=== PATIENT | female | born 1930 | race Caucasian/White ===

== ENCOUNTER → 2017-08-29 | Outpatient (CLI) | payer MEDICARE ==
[~2017-08-29] MED LIST: ALBIPROI; AZIT250; CLOT10 SUSW; DOXY100 PO; FLUSAL2505; GUAI600ER; PRED20
[2017-08-29 11:10] LABS: BASOPHILS ABSOLUTE AUTO 0.02 K/mm3 (0.00-0.23); BASOPHILS PERCENT AUTO 0 % (0-2); EOSINOPHILS ABSOLUTE AUTO 0.03 K/mm3 (0.00-0.68); EOSINOPHILS PERCENT AUTO 0 % (0-6); Hematocrit 40.5 % (33.0-51.0); IMMATURE GRAN ABSOLUTE AUTO 0.07 K/mm3 (0.00-0.10); IMMATURE GRAN PERCENT AUTO 1 % (0-1); LYMPHOCYTES ABSOLUTE AUTO 2.47 K/mm3 (0.84-5.20); LYMPHOCYTES PERCENT AUTO 17 % (21-46); MONOCYTES ABSOLUTE AUTO 0.96 K/mm3 (0.16-1.47); MONOCYTES PERCENT AUTO 7 % (4-13); Mean Corpuscular HGB 28.3 pg (26.0-34.0); Mean Corpuscular HGB Conc 32.1 g/dL (31.5-36.5); Mean Corpuscular Volume 88 fL (80-100); Mean Platelet Volume 9.8 fL (9.1-12.4); NEUTROPHILS ABSOLUTE AUTO 10.77 K/mm3 (1.96-9.15); NEUTROPHILS PERCENT AUTO 75 % (41-73); Platelet Count 304 K/mm3 (150-400); RDW Coefficient Variation 14.4 % (11.7-14.2); RDW Standard Deviation 46.5 fL (35.1-46.3); White Blood Cell Count 14.32 K/mm3 (4.00-11.30)
[2017-08-29 11:23] LABS: Alanine Aminotransfer (ALT/SGP 22 U/L (12-78); Albumin, Blood 3.5 g/dL (3.4-5.0); Albumin/Globulin Ratio 0.7 (0.8-1.8); Alk Phos 105 U/L (40-126); Anion Gap 6 mmol/L (6-16); Aspartate Aminotrans (AST/SGOT 17 U/L (12-37); Bilirubin, Total 0.4 mg/dL (0.1-1.0); Blood Urea Nitrogen 23 mg/dL (8-24); Bun/Creatinine Ratio 29.5 (12.0-20.0); CO2, Blood 32 mmol/L (21-32); Calcium, Blood 9.7 mg/dL (8.5-10.1); Chloride, Blood 101 mmol/L (98-108); Creatinine, Blood 0.78 mg/dL (0.40-1.00); Globulin, Blood 4.8 g/dL (2.2-4.0); Glomerular Filtration Rate >60 (60-); Glucose, Blood 112 mg/dL (70-99); Potassium, Blood 4.1 mmol/L (3.5-5.5); Sodium, Blood 139 mmol/L (136-145); Total Protein, Blood 8.3 g/dL (6.4-8.2)
== END | disposition home or self-care (01) ==
LOC: LAB SHORT 11:04 → LAB EV 11:04
PROVIDERS: Physician Assistant
DX: R05 Cough (principal)
CPT/HCPCS: 80053; 85025

== ENCOUNTER 2018-10-17 08:02 | Inpatient (IN) | payer MEDICARE ==
[~2018-10-17] VITALS: Ht 160 cm; Wt 50.1 kg
[2018-10-17] MEDS ORDERED: VITAMINS (08:10)
[2018-10-17 08:25] LABS: BASOPHILS ABSOLUTE AUTO 0.05 K/mm3 (0.00-0.23); BASOPHILS PERCENT AUTO 1 % (0-2); EOSINOPHILS PERCENT AUTO 5 % (0-6); Hematocrit 41.9 % (33.0-51.0); Hemoglobin 12.5 g/dL (11.5-16.0); IMMATURE GRAN ABSOLUTE AUTO 0.02 K/mm3 (0.00-0.10); IMMATURE GRAN PERCENT AUTO 0 % (0-1); LYMPHOCYTES ABSOLUTE AUTO 2.54 K/mm3 (0.84-5.20); LYMPHOCYTES PERCENT AUTO 34 % (21-46); MONOCYTES ABSOLUTE AUTO 0.82 K/mm3 (0.16-1.47); MONOCYTES PERCENT AUTO 11 % (4-13); Mean Corpuscular HGB 26.5 pg (26.0-34.0); Mean Corpuscular HGB Conc 29.8 g/dL (31.5-36.5); Mean Corpuscular Volume 89 fL (80-100); Mean Platelet Volume 10.1 fL (9.1-12.4); NEUTROPHILS ABSOLUTE AUTO 3.72 K/mm3 (1.96-9.15); NEUTROPHILS PERCENT AUTO 49 % (41-73); Platelet Count 272 K/mm3 (150-400); RDW Coefficient Variation 15.9 % (11.7-14.2); RDW Standard Deviation 52.6 fL (35.1-46.3); Red Blood Cell Count 4.71 M/mm3 (3.80-5.20); White Blood Cell Count 7.55 K/mm3 (4.00-11.30)
[2018-10-17 08:51] LABS: Alanine Aminotransfer (ALT/SGP 48 U/L (12-78); Albumin, Blood 3.6 g/dL (3.4-5.0); Albumin/Globulin Ratio 0.9 (0.8-1.8); Alk Phos 144 U/L (50-136); Anion Gap 4 mmol/L (6-16); Aspartate Aminotrans (AST/SGOT 24 U/L (12-37); Bilirubin, Total 0.6 mg/dL (0.1-1.0); Blood Urea Nitrogen 12 mg/dL (8-24); Bun/Creatinine Ratio 19.3 (12.0-20.0); CO2, Blood 28 mmol/L (21-32); Calcium, Blood 9.1 mg/dL (8.5-10.1); Chloride, Blood 106 mmol/L (98-108); Creatinine, Blood 0.62 mg/dL (0.40-1.00); Globulin, Blood 4.2 g/dL (2.2-4.0); Glomerular Filtration Rate >60 (60-); Glucose, Blood 128 mg/dL (70-99); Sodium, Blood 138 mmol/L (136-145); Total Protein, Blood 7.8 g/dL (6.4-8.2); Troponin I <0.015 ng/mL (0.000-0.040)
[2018-10-17] MEDS ORDERED: eye drops (12:17)
[2018-10-17] MEDS ORDERED: LATA.005SO BOTHEYES (12:19)
[2018-10-17] MEDS ORDERED: Istalol2.5 ML BOTHEYES (12:19)
--- NOTE | 2018-10-17 15:00 | NUR ---
PATIENT ARRIVED TO ROOM PCU 6 VIA STRETCHER AFTER TELEPHONE WAS RECEIVED FROM ERIN HARTMAN, ED, PATIENT WAS MOVED TO BED VIA SLIDER, PATIENT IS AWAKE, ALERT AND ORIENTED, SLIGHT LEFT SIDED FACIAL DROOP NOTED, LEFT ARM AND LEG SLIGHTLY WEAKER WITH MOVEMENT, PATIENT C/O MUSCLE CRAMPS IN LEFT CALF, LUNG SOUNDS ARE DIMINISHED IN ALL LUNG GOLDMAN, A-FIB WITH HR IN 80'S AT THIS TIME, BOWEL TONES PRESENT IN ALL FOUR QUADRANTS, PEDAL PULSES PALPABLE, SON AND DAUGHTER IN LAW AT BEDSIDE, HISTORY OBTAINED FROM PATIENT AND FAMILY MEMBERS, SCD'S PLACED ORDERED, VSS, PATIENT AND FAMILY ORIENTED TO ROOM AND NEW ENVIRONMENT, CALL LIGHT GIVEN AND EXPLAINED, PATIENT AND FAMILY VERBALIZED UNDERSTANDING, PATIENT IS ON RA SATING AROUND 93 %, CALL LIGHT IN REACH, WILL CONTINUE TO MONITOR.
--- NOTE | 2018-10-17 17:02 | NUR ---
FAMILY LEFT TO GO HOME, PATIENT IS SLEEPING AT THIS TIME, CALL LIGHT IN REACH, WILL CONTINUE TO MONITOR.
--- NOTE | 2018-10-17 17:48 | NUR ---
SHIFT SUMMARY NOTE: NO ACUTE EVENTS SINCE PATIENT WAS ADMITTED TO PCU, PATIENT IS RESTING COMFORTABLY AND SLEEPING, FAMILY WAS AT BEDSIDE BUT LEFT, DAUGHTER AND SON IN LAW IN, UPDATE ON PATIENTS CONDITION GIVEN, VSS, HR CONTINUES IN 80'S, RA AT 94 % O2 SATURATION, LUNG SOUNDS ARE DIMINISHED, PATIENT HAS BATHROOM PRIVILEGES AND IS ABLE TO AMBULATE TO BATHROOM WITH ONE ASSIST, NPO AT THIS TIME, SPEECH EVAL IS ORDERED, PATIENT IS ALERT AND ORIENTED, SLOW TO RESPOND, BUT PER FAMILY THAT IS HER BASELINE, FOR DETAILS SEE ADMISSION AND SHIFT ASSESSMENT DOCUMENTATION, AND NURSES NOTES, CALL LIGHT IN REACH, WILL CONTINUE TO MONITOR AND GIVE REPORT TO ONCOMING ENDOSCOPY REGISTERED NURSE.
--- NOTE | 2018-10-17 21:21 | NUR ---
ASSUMED CARE OF PATIENT AT APPROXIMATELY 1900 FROM JANICE Mendoza RN. PATIENT ALERT AND ORIENTED X4; FORGETFUL AT TIMES; SOME LEFT SIDE WEAKNESS NOTED; SLIGHT L FACIAL DROOP NOTED. PATIENT DENIES PAIN, NUMBNESS, TINGLING, DIZZINESS AND NAUSEA. AFIB ON TELE W/ RATE AVERAGING 90'S; OXYGEN SATURATION ABOVE 90% ON ROOM AIR. SCDS IN PLACE. FAMILY AT BEDSIDE DURING BEDSIDE REPORT. PATIENT IS SBA TO ONE ASSIST TO BATHROOM; NPO UNTIL SPEECH EVAL TOMORROW. PATIENT CURRENTLY RESTING IN BED; CALL LIGHT IN REACH; BED IN LOWEST POSISTION; BED ALARM ON; WILL CONTINUE TO MONITOR AND ASSESS UNTIL END OF SHIFT.
[2018-10-18 03:44] LABS: BASOPHILS ABSOLUTE AUTO 0.03 K/mm3 (0.00-0.23); BASOPHILS PERCENT AUTO 1 % (0-2); EOSINOPHILS ABSOLUTE AUTO 0.25 K/mm3 (0.00-0.68); EOSINOPHILS PERCENT AUTO 4 % (0-6); Hematocrit 39.1 % (33.0-51.0); Hemoglobin 12.2 g/dL (11.5-16.0); IMMATURE GRAN ABSOLUTE AUTO 0.02 K/mm3 (0.00-0.10); IMMATURE GRAN PERCENT AUTO 0 % (0-1); LYMPHOCYTES ABSOLUTE AUTO 3.01 K/mm3 (0.84-5.20); LYMPHOCYTES PERCENT AUTO 46 % (21-46); MONOCYTES ABSOLUTE AUTO 0.79 K/mm3 (0.16-1.47); MONOCYTES PERCENT AUTO 12 % (4-13); Mean Corpuscular HGB 26.6 pg (26.0-34.0); Mean Corpuscular HGB Conc 31.2 g/dL (31.5-36.5); Mean Corpuscular Volume 85 fL (80-100); NEUTROPHILS ABSOLUTE AUTO 2.42 K/mm3 (1.96-9.15); NEUTROPHILS PERCENT AUTO 37 % (41-73); Platelet Count 270 K/mm3 (150-400); RDW Coefficient Variation 16.1 % (11.7-14.2); RDW Standard Deviation 49.6 fL (35.1-46.3); Red Blood Cell Count 4.58 M/mm3 (3.80-5.20); White Blood Cell Count 6.52 K/mm3 (4.00-11.30)
[2018-10-18 04:09] LABS: Magnesium, Blood 2.1 mg/dL (1.6-2.4)
[2018-10-18 04:10] LABS: Alanine Aminotransfer (ALT/SGP 37 U/L (12-78); Albumin, Blood 3.2 g/dL (3.4-5.0); Albumin/Globulin Ratio 0.8 (0.8-1.8); Alk Phos 127 U/L (50-136); Anion Gap 8 mmol/L (6-16); Aspartate Aminotrans (AST/SGOT 20 U/L (12-37); Bilirubin, Total 0.6 mg/dL (0.1-1.0); Blood Urea Nitrogen 10 mg/dL (8-24); Bun/Creatinine Ratio 17.4 (12.0-20.0); CHOL/HDL RATIO 2.4; CO2, Blood 26 mmol/L (21-32); Calcium, Blood 8.7 mg/dL (8.5-10.1); Chloride, Blood 108 mmol/L (98-108); Cholesterol 163 mg/dL (50-200); Creatinine, Blood 0.58 mg/dL (0.40-1.00); Globulin, Blood 4.1 g/dL (2.2-4.0); Glomerular Filtration Rate >60 (60-); Glucose, Blood 83 mg/dL (70-99); HDL Cholesterol 67 mg/dL (>39); LDL/HDL RATIO 1.2; Low Density Lipoprotein Chol 78 mg/dL (0-110); Potassium, Blood 3.6 mmol/L (3.5-5.5); Sodium, Blood 142 mmol/L (136-145); Total Protein, Blood 7.3 g/dL (6.4-8.2); Triglycerides 89 mg/dL (30-160); Very Low Density Lipoprot Chol 17 mg/dL (6-32)
--- NOTE | 2018-10-18 06:07 | NUR ---
PATIENT SLEPT ABOUT TEN HOURS LAST NIGHT. NO ACUTE CHANGES TO REPORT. VSS. WILL CONTINUE TO MONITOR AND ASSESS UNTIL END OF SHIFT.
--- NOTE | 2018-10-18 16:01 | NUR ---
NOTE PT ALERT ORIENTED. AFIB WITH RATE LOW 100'S. PT ABLE TO TOLERATE PT/OT AND SPEACH. SHE IS FATIGUED AND CURRENTLY RESTING WITH HER EYES CLOSED. FAMILY AHS STEPPED OUT FOR AWHILE. VSS. NO COMPLAINTS OF PAIN OR DISCOMFORT. CONTINUE POT.
--- NOTE | 2018-10-18 17:42 | NUR ---
Per admit trigger, I met with Mrs. Franklin to offer information regarding Advanced Care Planning. Her two adult children were lso present. Mrs. Franklin is satisfied with her Full Code status and does not see a need for ACP. He son and dtr agree. I will remain available.
--- NOTE | 2018-10-19 06:24 | NUR ---
SHIFT SUMMARY PATIENT PLEASENT AND COOPERATIVE THROUGHOUT THE NIGHT. PATIENT CONTINUES TO HAVE SLIGHT WEAKNESS NOTED TO LEFT SIDE. PATIENT A ONE ASSIST TO THE BATHROOM. PATIENT APPEARED TO SLEEP WELL THROUGHOUT THE NIGHT WITH NO COMPLAINTS OF PAIN OR DISCOMFORT. VITAL SIGNS CHARTED. WILL CONTINUE TO MONITOR PATIENT AND REPORT TO ONCOMING RN.
--- NOTE | 2018-10-19 17:41 | NUR ---
REPORT TO PATTY KHAN ON MED FLOOR. PT TO GO TO MED FLOOR AFTER SHE IS DONE WITH ROSANGELA MEAL. PT AND FAMILY IN ROOM AT THIS TIME. PT HAD UNEVENTFUL DAY NO ACUTE CHANGES IN CONDITION ARE NOTED. PT IS MORE THAN LIKELY GOING TO REHAB TOMORROW. SHE STILL HAS LEFT ARM NEGLECT AND REMAINS ON A MECHANICAL SOFT DIET WITH HOT LIQUIDS USING A SPOON. SHE IS ON NORMAL FLUIDS JUST NO STRAW. PT IS AO X 4 ALL DAY. USES CALL LIGHT APPROPRIATELY AND IS ABLE TO MAKE HER NEEDS KNOWN. PT TO GO TO ROOM 312 ON MEDICAL FLOOR NO TELE NEEDED PER .
--- NOTE | 2018-10-19 18:19 | NUR ---
PATIENT ARRIVES TO FLOOR ABOUT 6PM VIA W/C FROM PCU. LUNGS CLEAR. IV SALINE LOCKED RT WRIST/F.A. SPEECH A LITTLE GARBLED. STANDS WITH ASSISTANCE. LEFT SIDED WEAKNESS. UNLABORED RESPIRATIONS. ON R.A.NO TELE. SCD'S ON. SITTING ON SIDE OF BED WITH RELATIVES X 2 VISITING. POSSIBLE D'C TO REHAB TOMORROW. DISCUSS PT/OT WITH FAMILY. BED IN LOW PSOTION. WCTM
--- NOTE | 2018-10-20 03:32 | NUR ---
SHIFT SUMMARY PT WAS WITHOUT COMPLAINTS DURING THE SHIFT AND SLEPT DURING MOST OF IT. PT UP TO THE BATHROOM A STANDBY ASSIST. VSS. WILL CONTINUE TO MONITOR.
[2018-10-20] MEDS ORDERED: XARELTO1 EACH PO (11:13)
[2018-10-20] MEDS ORDERED: METO25 PO (11:13)
[2018-10-20] MEDS ORDERED: FAMO20 PO (11:13)
[2018-10-20] MEDS ORDERED: Lipitor20 MG PO (11:14)
--- NOTE | 2018-10-20 11:59 | NUR ---
REPORT CALLED TO [facility] AT [facility]. FAMILY AT BEDSIDE. IV DC'D INTACT. AWAITING TRANSPORT.
--- NOTE | 2018-10-20 12:06 | NUR ---
PT DC'D TO [facility]IA [facility] W/C AT [id number].
--- NOTE | 2018-10-20 12:09 | NUR ---
Initial Visit: Palliative Care Consult for Advanced Care Planning. Pt is A&O and reports wanting to complete a POLST. Pt's daughter in law present during visit. Engaged in therapeutic discussion regarding AD/POLST. Educated Pt on life sustaining measures including risk factors with V/U made by Pt and family. Pt requests for daughter in law to assist with completing POLST. Pt chooses DNR and Limited Treatment and has daughter in law sign POLST for her. Educated Pt and family on Advanced Directive. Pt and family report they will complete AD at a later time. Educated on the importance for consideration of the need for assistance with care in the home pending success of rehabilitation with V/U made by both Pt and family. No other concerns reported at this time. Dr Burleson signs POLST. 4 copies of POLST obtained, 2 given to family along with original, 1 copy given to bedside nurse to place in discharge packet for facility, and 1 copy faxed to medical records. Palliative Care will remain available.
== END 2018-10-20 12:06 | DRG 65 ==
LOC: ER 08:02 → PCU 12:44 → MEDS 10-19 17:23 → ENPENDDIS 10-20 11:57 → MEDS 10-20 12:06
PROVIDERS: Emergency Medicine; ADMIT Internal Medicine
DX: I63.411 Cerebral infarction due to embolism of right middle cerebral artery (principal); G81.94 Hemiplegia, unspecified affecting left nondominant side; R47.02 Dysphasia; R29.810 Facial weakness; R47.81 Slurred speech; Z87.891 Personal history of nicotine dependence; H40.9 Unspecified glaucoma
CPT/HCPCS: 36415; 70450; 70551; 80053; 80061; 83735; 84443; 84484; 85025; 92526; 92610; 93005; 93010; 93306; 97110; 97112; 97116; 97162; 97166; 97530; 97535; 99285-25; J1644